=== PATIENT | female | born 1995 | race Caucasian/White ===

== ENCOUNTER 2017-02-03 17:16 | Emergency (ER) | payer OTHER ==
[2017-02-03 17:27] VITALS: BP 109/63; PULSE 88; TEMP 97.8; BMI 23.8
[2017-02-03] MEDS ORDERED: DEXAMETHASONE SOD PHOSPHATE 10 MG/1 ML VIAL ONE (18:30)
[2017-02-03] MEDS ORDERED: DEXAMETHASONE LIQUID 0.5 MG/5 ML 240 ML BULK BOTTLE PO ONE (18:48)
--- NOTE | 2017-02-03 18:57 | PDOC ---
History of Present Illness - General Chief Complaint: Sore Throat Stated Complaint: SORE THROAT Time Seen by Provider: 02/03/17 18:02 History Source: Patient Exam Limitations: No Limitations - History of Present Illness Initial Comments: 02/03/17 18:49 Patient is a 21-year-old female, presents with sore throat dysphasia since last p.m. Patient is an otherwise healthy, fully vaccinated, on no medication. Sister with similar symptoms. Patient reports having chills with no documented temperature, tactile only. Past Medical History: Denies. Allergies: No known allergies Medications: None Family History: Non-contributory Social History: Denies smoking, alcohol use, or IVDU Review of Systems GENERAL/CONSTITUTIONAL: No fever or chills. No weakness. No weight change. HEAD, EYES, EARS, NOSE AND THROAT: No change in vision. No ear pain or discharge. Sore throat and dysphagia CARDIOVASCULAR: No chest pain or shortness of breath. RESPIRATORY: No cough, wheezing, or hemoptysis. GASTROINTESTINAL: No nausea, vomiting, diarrhea or constipation. No rectal bleeding. GENITOURINARY: No dysuria, frequency, or change in urination. MUSCULOSKELETAL: No joint or muscle swelling or pain. No neck or back pain. SKIN AND BREASTS: No rash or easy bruising. NEUROLOGIC: No headache, vertigo, loss of consciousness, or loss of sensation. PSYCHIATRIC: No depression or anxiety. ENDOCRINE: No increased thirst. No abnormal weight change. HEMATOLOGIC/LYMPHATIC: No anemia, easy bleeding, or history of blood clots. ALLERGIC/IMMUNOLOGIC: No hives or skin allergy. No latex allergy. Physical Exam: GENERAL: The patient is awake, alert, and fully oriented, in no acute distress. EYES: Pupils equal, round and reactive to light, extraocular movements intact, sclera anicteric, conjunctiva clear. ENT: Ears normal, nares patent, oropharynx erythematous without exudates. Moist mucous membranes. No uvula deviation NECK: Normal range of motion, supple without lymphadenopathy, JVD, or masses. LUNGS: Breath sounds equal, clear to auscultation bilaterally. No wheezes, and no crackles. HEART: Regular rate and rhythm, normal S1 and S2 without murmur, rub or gallop. ABDOMEN: Soft, nontender, normoactive bowel sounds. No guarding, no rebound. No masses. No bruising or abrasions MUSCULOSKELETAL: Normal range of motion, no edema. No clubbing or cyanosis. No cords, erythema, or tenderness. No CVA Tenderness with fist palpation. SKIN: Warm, Dry, normal turgor, no rashes or lesions noted. Past History - Past Medical History Allergies/Adverse Reactions: Allergies Allergy/AdvReac Type Severity Reaction Status Date / Time No Known Allergies Allergy Verified 02/03/17 17:19 Home Medications: Ambulatory Orders Azithromycin [Zithromax 250mg Tablets -] 250 mg PO UTDICT #6 tab 02/03/17 Other medical history: h.pylori - Immunization History Immunization Up to Date: Yes - Psycho/Social/Smoking Cessation Hx Anxiety: No Suicidal Ideation: No Smoking Status: No Smoking History: Never smoked Have you smoked in the past 12 months: No Number of Cigarettes Smoked Daily: 0 Information on smoking cessation initiated: No Hx Alcohol Use: No Drug/Substance Use Hx: No Substance Use Type: None *Physical Exam - Vital Signs Last Vital Signs Temp Pulse Resp BP Pulse Ox 97.8 F 88 18 109/63 100 02/03/17 17:20 02/03/17 17:20 02/03/17 17:20 02/03/17 17:20 02/03/17 17:20 Medical Decision Making - Medical Decision Making 02/03/17 18:57 A/P: Patient with acute pharyngitis, sister with strep throat will treat with azithromycin. Patient with difficulty swallowing we'll give Decadron while in emergency department. I discussed the physical exam findings, ancillary test results and final diagnoses with the patient. I answered all of the patient's questions. The patient was satisfied with the care received and felt comfortable with the discharge plan and treatment plan. The patient will call to arrange follow-up and will return to the Emergency Department with any new, persistent or worsening symptoms. *DC/Admit/Observation/Transfer Diagnosis at time of Disposition: Pharyngitis Qualifiers: Pharyngitis/tonsillitis etiology: unspecified etiology Qualified Code(s): J02.9 - Acute pharyngitis, unspecified - Discharge Dispostion Disposition: HOME Condition at time of disposition: Good Admit: No - Prescriptions Prescriptions: Azithromycin [Zithromax 250mg Tablets -] 250 mg PO UTDICT #6 tab - Patient Instructions Printed Discharge Instructions: DI for Pharyngitis/Tonsillopharyngitis -- Adult Additional Instructions: 1. Increase fluid. 2. Pedialyte or Gatorade. 3. Please change toothbrush within 3 days of starting antibiotics. 4. Warm saltwater gargles. 5. Please follow up with PMD in 3 days if symptoms not resolving. 6. Please return to the ER unable to drink or eat, increased fever or other concerns
== END 2017-02-03 19:25 | disposition home or self-care (01) ==
LOC: JER 17:16 → JERFT 17:16
DX: J02.9 Acute pharyngitis, unspecified (principal)
CPT/HCPCS: 99281-25

== ENCOUNTER 2017-06-04 18:14 | Emergency (ER) | payer OTHER ==
[2017-06-04 18:17] VITALS: BP 114/60; PULSE 61; TEMP 98.3; BMI 21.9
--- NOTE | 2017-06-04 19:30 | PDOC ---
History of Present Illness - General Chief Complaint: Urinary Problem Stated Complaint: PAIN Time Seen by Provider: 06/04/17 19:03 History Source: Patient Exam Limitations: No Limitations - History of Present Illness Travel History: No Initial Comments: 06/04/17 19:29 This is a 21-year-old female without past medical history presents to the emergency department with burning on urination and at the completion of voiding. She states she has not been having any intercourse and has no vaginal discharge. She denies lower back pain and lower abdominal pain. She denies fevers, nausea, vomiting, abdominal pain, chest pain, shortness of breath, dizziness. Past History - Past Medical History Allergies/Adverse Reactions: Allergies Allergy/AdvReac Type Severity Reaction Status Date / Time No Known Allergies Allergy Verified 06/04/17 18:17 Home Medications: Ambulatory Orders Sulfamethoxazole/Trimethoprim [Bactrim Ds -] 1 tab PO BID #14 tablet 06/04/17 Other medical history: NONE - Immunization History Immunization Up to Date: Yes - Suicide/Smoking/Psychosocial Hx Smoking Status: No Smoking History: Never smoked Have you smoked in the past 12 months: No Number of Cigarettes Smoked Daily: 0 Hx Alcohol Use: No Drug/Substance Use Hx: No Substance Use Type: None Review of Systems - Review of Systems Able to Perform ROS?: Yes Is the patient limited Telugu proficient: No : Yes: See HPI All Other Systems: Reviewed and Negative *Physical Exam - Vital Signs Last Vital Signs Temp Pulse Resp BP Pulse Ox 98.3 F 61 20 114/60 110 H 06/04/17 18:14 06/04/17 18:14 06/04/17 18:14 06/04/17 18:14 06/04/17 18:14 - Physical Exam General Appearance: Yes: Appropriately Dressed. No: Apparent Distress HEENT: positive: EOMI, SYED, Normal ENT Inspection Neck: positive: Trachea midline, Supple Respiratory/Chest: positive: Lungs Clear, Normal Breath Sounds. negative: Respiratory Distress, Accessory Muscle Use Cardiovascular: positive: Regular Rhythm, Regular Rate, S1, S2. negative: Edema , Murmur Gastrointestinal/Abdominal: positive: Normal Bowel Sounds, Soft. negative: Tender Musculoskeletal: positive: Normal Inspection. negative: CVA Tenderness Extremity: positive: Normal Capillary Refill, Normal Inspection, Normal Range of Motion Integumentary: positive: Normal Color, Dry, Warm Neurologic: positive: records clerk II-XII NML intact, Fully Oriented, Alert, Normal Mood/ Affect, Normal Response, Motor Strength 5/5 Medical Decision Making - Medical Decision Making 06/04/17 19:28 A/P: This is a 21-year-old female without past medical history presents to the emergency department with burning on urination and at the completion of voiding. She states she has not been having any intercourse and has no vaginal discharge. She denies lower back pain and lower abdominal pain. She denies fevers, nausea, vomiting, abdominal pain, chest pain, shortness of breath, dizziness. Patient is alert and oriented 3 in no apparent distress. Respirations even and unlabored. Lungs sounds clear to auscultation bilaterally. Regular rate and rhythm. S1 and S2 present. No murmurs, rubs or gallop present. Abdomen soft nontender nondistended. Normal active bowel sounds. Moves all extremities 4 with strength 5 out of 5. No CVA tenderness elicited to light or deep palpation. Differential diagnosis include urinary tract infection, gonorrhea and Chlamydia infection. I will check a urine test and urinalysis and urine culture. Given patient's symptomatology I will empirically treat with antibiotics. 06/04/17 19:49 Urinalysis shows a large amount of RBCs and WBCs. This consistent with patient being on her period and not getting a clean catch sent. Given symptoms with ALLERGY I will treat patient with Bactrim DS 1 tab twice a day for the next 7 days. *DC/Admit/Observation/Transfer Diagnosis at time of Disposition: Urinary tract infection Qualifiers: Urinary tract infection type: site unspecified Hematuria presence: with hematuria Qualified Code(s): N39.0 - Urinary tract infection, site not specified ; N39.0 - Urinary tract infection, site not specified; R31.9 - Hematuria, unspecified; R31.9 - Hematuria, unspecified - Discharge Dispostion Disposition: HOME Condition at time of disposition: Stable Admit: No - Prescriptions Prescriptions: Sulfamethoxazole/Trimethoprim [Bactrim Ds -] 1 tab PO BID #14 tablet - Referrals Referrals: Saranya Vasquez MD [Primary Care Provider] - - Patient Instructions Printed Discharge Instructions: DI for Urinary Tract Infection (UTI) Additional Instructions: Drink plenty of fluids. Drink rearranges may help with urinary tract symptoms. Take Bactrim DS one tablet twice a day until all the medications are finished. Symptoms do not improve in the next 2-3 days see her primary doctor. Return to emergency department for fevers, worsening pain, pain in the lower back, nausea, vomiting or any other concerns. Thank you very much for choosing us to provide your emergent healthcare needs.
[2017-06-04 19:37] LABS: URINE APPEARANCE SLCLOUDY; URINE BILIRUBIN NEGATIVE (NEGATIVE); URINE BLOOD 3+ (NEGATIVE); URINE COLOR LTYELLOW; URINE GLUCOSE (UA) NEGATIVE (NEGATIVE); URINE KETONE NEGATIVE (NEGATIVE); URINE NITRITE NEGATIVE (NEGATIVE); URINE UROBILINOGEN NEGATIVE mg/dL (0.2-1.0)
[2017-06-04 19:40] LABS: URINE PROTEIN 1+ (NEGATIVE)
[2017-06-04 19:41] LABS: URINE MUCUS RARE; URINE RBC 525 /hpf (0-3); URINE WBC 242 /hpf (3-5)
[2017-06-04 22:48] LABS: URINE LEUK ESTERASE 1+ (NEGATIVE)
== END 2017-06-04 19:53 | disposition home or self-care (01) ==
LOC: JERFT 18:14
DX: N39.0 Urinary tract infection, site not specified (principal); R31.9 Hematuria, unspecified
CPT/HCPCS: 81003; 81015; 84703; 99281-25

== ENCOUNTER 2017-10-09 17:29 | Emergency (ER) | payer OTHER ==
[2017-10-09 17:34] VITALS: BP 123/71; PULSE 90; TEMP 98.1; BMI 21.9
--- NOTE | 2017-10-09 17:44 | PDOC ---
History of Present Illness - General Chief Complaint: Pain Stated Complaint: ABD PAIN Time Seen by Provider: 10/09/17 17:43 History Source: Patient Exam Limitations: No Limitations - History of Present Illness Initial Comments: 10/09/17 18:50 22F with pmh of H. Pylori ulcer presents to the ED for 9/10 bilateral lower quadrant abdominal pain that she has been having since she woke up yesterday morning. The pain feels pulsating and constant. Tried taking tylenol for it with minimal relief. Feels nauseous. Denies dysuria, hematuria, constipation, diarrhea or vomiting. Uses condoms consistently with boyfriend who is present in the room 10/09/17 18:51 10/09/17 19:01 Past History - Past Medical History Allergies/Adverse Reactions: Allergies Allergy/AdvReac Type Severity Reaction Status Date / Time No Known Allergies Allergy Verified 10/09/17 17:30 Home Medications: Ambulatory Orders Cephalexin [Keflex] 500 mg PO TID 10 Days #30 capsule 10/09/17 COPD: No - Immunization History Immunization Up to Date: Yes - Suicide/Smoking/Psychosocial Hx Smoking Status: No Smoking History: Never smoked Have you smoked in the past 12 months: No Number of Cigarettes Smoked Daily: 0 Information on smoking cessation initiated: No Hx Alcohol Use: No Drug/Substance Use Hx: No Substance Use Type: None Review of Systems - Review of Systems Able to Perform ROS?: Yes Is the patient limited [place] proficient: No Constitutional: No: Symptoms Reported HEENTM: No: Symptoms Reported Respiratory: No: Symptoms reported Cardiac (ROS): No: Symptoms Reported ABD/GI: Yes: See HPI : Yes: Pain. No: Burning, Dysuria, Discharge *Physical Exam - Vital Signs Last Vital Signs Temp Pulse Resp BP Pulse Ox 98.1 F 90 12 123/71 100 10/09/17 17:31 10/09/17 17:31 10/09/17 17:31 10/09/17 17:31 10/09/17 17:31 - Physical Exam General Appearance: Yes: Nourished, Appropriately Dressed, Moderate Distress HEENT: positive: EOMI, SYED, Normal ENT Inspection Respiratory/Chest: positive: Lungs Clear, Normal Breath Sounds. negative: Chest Tender, Respiratory Distress Cardiovascular: positive: Regular Rhythm, Regular Rate, S1, S2 Female Pelvic Exam: positive: normal external exam, cervical os closed, normal adnexa, normal size ovaries. negative: CMT, discharge, lesions Gastrointestinal/Abdominal: positive: Normal Bowel Sounds, Flat, Soft. negative : Tender Integumentary: positive: Normal Color, Dry, Warm Neurologic: positive: Fully Oriented, Alert, Normal Mood/Affect, Normal Response , Motor Strength 12/16 ED Treatment Course - LABORATORY CBC & Chemistry Diagram: 10/09/17 18:25 10/09/17 18:25 Medical Decision Making - Medical Decision Making 10/09/17 22:13 22F with lower abd pain. Negative Cy abd. Positive UA. No cervical motion tenderness. No PID. Pyelo vs cystitis. Keflex started and precribed. Follow up with nai 10/09/17 22:19 *DC/Admit/Observation/Transfer Diagnosis at time of Disposition: Cystitis - Discharge Dispostion Disposition: HOME Condition at time of disposition: Improved Admit: No - Prescriptions Prescriptions: Cephalexin [Keflex] 500 mg PO TID 10 Days #30 capsule - Referrals Referrals: Johnathan Ochoa MD [Staff Physician] - - Patient Instructions Printed Discharge Instructions: DI for Kidney Infection, DI for Hemorrhagic Cystitis Additional Instructions: Follow up with your OBGYN Dr. Ochoa within the next 2 days. Take your antibiotics 3 times a day for 10 days. Come back to the ER for any new, worsening or concerning symptom. - Post Discharge Activity
[2017-10-09] MEDS ORDERED: SODIUM CHLORIDE 1,000 ML IV STA (17:56)
[2017-10-09] MEDS ORDERED: ONDANSETRON 4 MG/2 ML VIAL IVPUSH ONE (17:57)
[2017-10-09] MEDS ORDERED: morphine CARPU-JECT 2 MG/1 ML DISP.SYRIN IVPUSH ONE (17:58)
[2017-10-09] MEDS ORDERED: MORPHINE SULFATE 10 MG/1 ML *VIAL ONE (18:32)
[2017-10-09] MEDS ORDERED: ONDANSETRON 4 MG/2 ML VIAL ONE (18:33)
[2017-10-09 18:36] LABS: BASO % 0.2 % (0-2.0); HEMATOCRIT 39.5 % (32.4-45.2); LYMPH % 13.2 % (8-40); MCH 28.8 pg (25.7-33.7); MCHC 32.9 g/dl (32.0-36.0); MEAN CELL VOLUME 87.5 fl (80-96); MEAN PLT VOLUME 10.7 fl (7.5-11.1); MONO % 6.5 % (3.8-10.2); NEUT % 79.1 % (42.8-82.8); PLATELET COUNT 164 K/MM3 (134-434); RBC 4.51 M/mm3 (3.60-5.2); RDW 14.5 % (11.6-15.6); WHITE BLOOD COUNT 14.3 K/mm3 (4.0-10.0)
[2017-10-09 18:44] LABS: HCG,QUALITATIVE URINE NEGATIVE
[2017-10-09 19:05] LABS: ANION GAP 8 (8-16); BILIRUBIN,TOTAL 0.4 mg/dL (0.2-1.0); BLOOD UREA NITROGEN 14 mg/dL (7-18); CALCIUM 8.3 mg/dL (8.5-10.1); CHLORIDE 105 mmol/L (98-107); CO2 27 mmol/L (21-32); CREATININE 0.7 mg/dL (0.55-1.02); GLUCOSE,RANDOM 86 mg/dL (74-106); POTASSIUM 3.6 mmol/L (3.5-5.1); SGOT/AST 14 U/L (15-37); SGPT/ALT 19 U/L (12-78); SODIUM 140 mmol/L (136-145); TOT PROT 7.1 g/dl (6.4-8.2)
[2017-10-09 19:06] LABS: ALK PHOS 66 U/L (45-117)
--- NOTE | 2017-10-09 20:12 | PDOC ---
Attending Attestation - Resident Resident Name: Jose Javier - ED Attending Attestation I have performed the following: I have examined & evaluated the patient, The case was reviewed & discussed with the resident, I agree w/resident's findings & plan, Exceptions are as noted - HPI HPI: 10/09/17 20:12 22-year-old female presents with lower abdominal pain 1 day. - Physicial Exam PE: 10/09/17 20:12 Well-developed 22-year-old female in no acute distress. Head normocephalic/atraumatic. Neck no bruits, nodes, JVD, supple Lungs clear to auscultation bilaterally CVS regular rate and rhythm S1, S2 no gallops no rubs. Abdomen lower quadrant tenderness to deep palpation, no rebound, no epigastric tenderness. Extremities no erythema, no clubbing, no edema. Neuro alert and oriented 3. No gross focal neural deficits. Skin warm and dry. Psych appropriate - Medical Decision Making 10/09/17 20:23 preg,cbc,comp,imaging 10/09/17 22:29 ct scan abd pel is negative for acute abdominal or pelvic pathology imp mild uti, will start w antibiotics
[2017-10-09 21:24] LABS: URINE APPEARANCE CLOUDY; URINE BILIRUBIN NEGATIVE (NEGATIVE); URINE BLOOD 3+ (NEGATIVE); URINE COLOR YELLOW; URINE GLUCOSE (UA) NEGATIVE (NEGATIVE); URINE KETONE NEGATIVE (NEGATIVE); URINE NITRITE NEGATIVE (NEGATIVE); URINE UROBILINOGEN NEGATIVE mg/dL (0.2-1.0)
[2017-10-09 21:27] LABS: URINE LEUK ESTERASE 2+ (NEGATIVE); URINE PROTEIN 2+ (NEGATIVE)
[2017-10-09 21:28] LABS: EPI CELLS RARE /HPF (FEW); URINE BACTERIA RARE /hpf (NONE SEEN); URINE MUCUS RARE
[2017-10-09] MEDS ORDERED: CEPHALEXIN MONOHYDRATE 500 MG CAPSULE (UD) PO ONE (22:10)
[2017-10-09] MEDS ORDERED: CEPHALEXIN MONOHYDRATE 250 MG CAPSULE (FP) ONE (22:25)
== END 2017-10-09 22:29 | disposition home or self-care (01) ==
LOC: JER 17:29
PROC: 3E033NZ Introduction of Analgesics, Hypnotics, Sedatives into Peripheral Vein, Percutaneous Approach (ICD-10-PCS; principal; 2017-10-09)
PROC: 3E0333Z Introduction of Anti-inflammatory into Peripheral Vein, Percutaneous Approach (ICD-10-PCS; 2017-10-09)
DX: N30.00 Acute cystitis without hematuria (principal)
CPT/HCPCS: 36415; 74177-TC; 80053; 81003; 81015; 84703; 85025; 87086; 87186; 96374; 96375; 99282-25

== ENCOUNTER 2018-07-08 22:09 | Emergency (ER) | payer OTHER ==
[2018-07-08 22:26] VITALS: TEMP 98.9
--- NOTE | 2018-07-08 22:33 | PDOC ---
History of Present Illness - General Chief Complaint: Pain Stated Complaint: ABDOMINAL PAIN History Source: Patient Exam Limitations: No Limitations - History of Present Illness Travel History: No Initial Comments: 07/08/18 23:14 Best Contact: PCP: Dr. Patsy Vasquez Pmhx: Denies Pshx: 2014: right knee arthroscopy Allergies: NKDA FH:0 Social Hx: Cigarettes/ 0 Alcohol/ 0 Drugs/0 LMP: 06/23/2018 22-year-old female presents to the emergency department complaining of left lower quadrant and periumbilical abdominal discomfort 3 days with nausea and vomiting this evening/nonbilious, nonbloody. Pain is described as 6/10 dull nonradiating intermittent discomfort. There are no exacerbating or alleviating factors. Patient attributed the pain to over eating 4 days ago from a Thanksgiving dinner. Patient attempted to burp numerous times to feel better but was unable to make herself burp. Patient denies fever, chills, headache, dizziness, lightheadedness, neck pain/stiffness, back pains, chest pain, shortness of breath, flank pains, urinary symptoms: Frequency/urgency/hesitancy , burning upon urination or hematuria. Patient denies history of similar symptoms. Past History - Past Medical History Allergies/Adverse Reactions: Allergies Allergy/AdvReac Type Severity Reaction Status Date / Time No Known Allergies Allergy Verified 07/08/18 22:25 Home Medications: Ambulatory Orders Cephalexin [Keflex] 500 mg PO TID 10 Days #30 capsule 10/09/17 COPD: No - Immunization History Immunization Up to Date: Yes - Suicide/Smoking/Psychosocial Hx Smoking Status: No Smoking History: Never smoked Have you smoked in the past 12 months: No Number of Cigarettes Smoked Daily: 0 Hx Alcohol Use: No Drug/Substance Use Hx: No Substance Use Type: None Review of Systems - Review of Systems Able to Perform ROS?: Yes Comments:: 07/08/18 23:11 CONSTITUTIONAL: Absent: fever, chills, diaphoresis, generalized weakness, malaise, loss of appetite HEENT: Absent: rhinorrhea, nasal congestion, throat pain, throat swelling, difficulty swallowing, mouth swelling, ear pain, eye pain, visual Changes CARDIOVASCULAR: Absent: chest pain, loss of consciousness, palpitations, irregular heart rate, peripheral edema RESPIRATORY: Absent: cough, shortness of breath, dyspnea with exertion, orthopnea, wheezing, stridor, hemoptysis GASTROINTESTINAL: +LLQ and juan umbilical pain Absent: abdominal distension, nausea, vomiting, diarrhea, constipation, melena, hematochezia GENITOURINARY: Absent: dysuria, frequency, urgency, hesitancy, hematuria, flank pain, genital pain MUSCULOSKELETAL: Absent: myalgia, arthralgia, joint swelling SKIN: Absent: rash, itching, pallor HEMATOLOGIC/IMMUNOLOGIC: Absent: easy bleeding, easy bruising, lymphadenopathy, frequent infections ENDOCRINE: Absent: unexplained weight gain, unexplained weight loss, heat intolerance, cold intolerance Is the patient limited Swedish proficient: No *Physical Exam - Vital Signs Last Vital Signs Temp Pulse Resp BP Pulse Ox 98.9 F 66 18 114/68 100 07/08/18 22:25 07/08/18 22:25 07/08/18 22:25 07/08/18 22:25 07/08/18 22:25 - Physical Exam Comments: 07/08/18 23:12 GENERAL: Well developed, well nourished. Awake and alert. No acute distress. HEENT: Normocephalic, atraumatic. PERRLA, EOMI. No conjunctival pallor. Sclera are non- icteric. Moist mucous membranes. Oropharynx is clear. NECK: Supple. Full ROM. No JVD. Carotid pulses 2+ and symmetric, without bruits. No thyromegaly. No lymphadenopathy. CARDIOVASCULAR: Regular rate and rhythm. No murmurs, rubs, or gallops. Distal pulses are 2+ and symmetric. PULMONARY: No evidence of respiratory distress. Lungs clear to auscultation bilaterally. No wheezing, rales or rhonchi. ABDOMINAL: +LLQ and periumbilical pain Soft. Non-distended. No rebound or guarding. No organomegaly. Normoactive bowel sounds. MUSCULOSKELETAL Normal range of motion at all joints. No bony deformities or tenderness. No CVA tenderness. EXTREMITIES: No cyanosis. No clubbing. No edema. No calf tenderness. SKIN: Warm and dry. Normal capillary refill. No rashes. No jaundice. ED Treatment Course - LABORATORY CBC & Chemistry Diagram: 07/08/18 23:05 07/08/18 23:05 - RADIOLOGY Radiograph Interpretation: 07/09/18 02:47 Ultrasound transvaginal: Normal uterus. Normal homogeneous endometrial complex measuring 1.2 cm. Normal follicular right ovary with possible arteriovenous Doppler blood flow. There is a complex left ovarian cyst measuring approximately 1.2 cm. The remainder of the left ovary is normal with positive arteriovenous Doppler blood flow. There is also some fluid in the pelvic cul-de-sac. Possible ruptured cyst. CAT scan abdomen/pelvis with IV contrast: There is a 2 cm left adnexal cyst or possibly 2 adjacent left adnexal cyst. There is fluid in the left adnexal and in the cul-de-sac. Possible rupturing cyst. Ultrasound should be helpful. No bowel structure or inflammation. Negative for diverticulitis or colitis. Normal appendix. Normal kidneys urinary tract urinary bladder. Heterogeneous appearing liver. Nonspecific. Normal spleen. *DC/Admit/Observation/Transfer Diagnosis at time of Disposition: Ovarian cyst Qualifiers: Laterality: left Qualified Code(s): N83.202 - Unspecified ovarian cyst, left side - Discharge Dispostion Disposition: HOME Condition at time of disposition: Stable Decision to Admit order: No - Referrals Referrals: Saranya Vasquez MD [Primary Care Provider] - - Patient Instructions Printed Discharge Instructions: DI for Ovarian Cyst Additional Instructions: Increase fluids Tylneol or Motrin as needed for pain Be sure to follow-up with your benzene worker this week Return back to the ER for any concerns, severe/persistent or worsening symptoms These are your preliminary reading from the ultrasound and CAT scan of your abdomen/pelvis Ultrasound transvaginal: Normal uterus. Normal homogeneous endometrial complex measuring 1.2 cm. Normal follicular right ovary with possible arteriovenous Doppler blood flow. There is a complex left ovarian cyst measuring approximately 1.2 cm. The remainder of the left ovary is normal with positive arteriovenous Doppler blood flow. There is also some fluid in the pelvic cul-de-sac. Possible ruptured cyst. CAT scan abdomen/pelvis with IV contrast: There is a 2 cm left adnexal cyst or possibly 2 adjacent left adnexal cyst. There is fluid in the left adnexal and in the cul-de-sac. Possible rupturing cyst. Ultrasound should be helpful. No bowel structure or inflammation. Negative for diverticulitis or colitis. Normal appendix. Normal kidneys urinary tract urinary bladder. Heterogeneous appearing liver. Nonspecific. Normal spleen. - Post Discharge Activity
[2018-07-08 23:14] LABS: BASO % 0.5 % (0-2.0); EOS % 2.9 % (0-4.5); HEMATOCRIT 37.1 % (32.4-45.2); HEMOGLOBIN 12.9 GM/dL (10.7-15.3); LYMPH % 37.6 % (8-40); MCHC 34.7 g/dl (32.0-36.0); MEAN CELL VOLUME 86.6 fl (80-96); MONO % 10.2 % (3.8-10.2); NEUT % 48.8 % (42.8-82.8); PLATELET COUNT 173 K/MM3 (134-434); RBC 4.29 M/mm3 (3.60-5.2); RDW 13.6 % (11.6-15.6); WHITE BLOOD COUNT 8.1 K/mm3 (4.0-10.0)
[2018-07-08 23:36] LABS: ALBUMIN 3.7 g/dl (3.4-5.0); ALK PHOS 69 U/L (45-117); ANION GAP 6 MMOL/L (8-16); BILIRUBIN,TOTAL 0.1 mg/dL (0.2-1); BLOOD UREA NITROGEN 15 mg/dL (7-18); CALCIUM 8.5 mg/dL (8.5-10.1); CHLORIDE 104 mmol/L (98-107); CO2 28 mmol/L (21-32); CREATININE 0.8 mg/dL (0.55-1.3); GLUCOSE,RANDOM 71 mg/dL (74-106); LIPASE 150 U/L (73-393); POTASSIUM 3.5 mmol/L (3.5-5.1); SGOT/AST 18 U/L (15-37); SGPT/ALT 21 U/L (13-61); SODIUM 138 mmol/L (136-145)
[2018-07-08 23:42] LABS: URINE APPEARANCE SLCLOUDY; URINE BILIRUBIN NEGATIVE (<2.0 mg/dL); URINE COLOR LTYELLOW; URINE GLUCOSE (UA) NEGATIVE (NEGATIVE); URINE KETONE NEGATIVE (NEGATIVE); URINE LEUK ESTERASE NEGATIVE (NEGATIVE); URINE NITRITE NEGATIVE (NEGATIVE); URINE PROTEIN NEGATIVE (NEGATIVE); URINE UROBILINOGEN NEGATIVE mg/dL (0.2-1.0)
[2018-07-08 23:46] LABS: HCG,QUALITATIVE URINE Negative
[2018-07-09] MEDS ORDERED: ACETAMINOPHEN 325 MG TABLET (FP) ONE (00:51)
[2018-07-09] MEDS: ACETAMINOPHEN 500 MG TABLET (FP) PO ONE ×2 (00:55→03:40)
[2018-07-09] MEDS ORDERED: ACETAMINOPHEN 325 MG TABLET (FP) PO ONE (03:39)
[2018-07-09 03:46] VITALS: BP 111/57; PULSE 69
== END 2018-07-09 02:55 | disposition home or self-care (01) ==
LOC: JER 22:09
DX: N83.202 Unspecified ovarian cyst, left side (principal)
CPT/HCPCS: 36415; 74177-TC; 76830-TC; 80053; 81003; 83690; 84703; 85025; 99283-25

== ENCOUNTER 2019-06-28 17:32 | Emergency (ER) | payer OTHER ==
[2019-06-28 17:45] VITALS: BP 110/65; PULSE 81; TEMP 98.2; BMI 23.2
--- NOTE | 2019-06-28 17:45 | PDOC ---
Rapid Medical Evaluation Chief Complaint: Urinary Problem Time Seen by Provider: 06/28/19 17:41 Medical Evaluation: Allergies Allergy/AdvReac Type Severity Reaction Status Date / Time No Known Allergies Allergy Verified 07/08/18 22:25 06/28/19 17:42 23 year old female with dysuria since monday some suprapubic pain. patient reports that she has been taking AZO with no relief. Pe; patient alert ox3. a: dysuria r/o UTI P: ua urine culture urine Discharge Disposition - Diagnosis Dysuria - Referrals - Patient Instructions - Post Discharge Activity
[2019-06-28 19:44] LABS: EPI CELLS 4.7 /HPF (0-5/HPF); HYALINE CASTS 9 /lpf (0-8); URINE APPEARANCE CLEAR; URINE BACTERIA 8.1 /hpf (NEGATIVE); URINE BILIRUBIN NEGATIVE (NEGATIVE); URINE COLOR YELLOW; URINE GLUCOSE (UA) NEGATIVE (NEGATIVE); URINE KETONE NEGATIVE (NEGATIVE); URINE LEUK ESTERASE 1+ (NEGATIVE); URINE NITRITE NEGATIVE (NEGATIVE); URINE PROTEIN NEGATIVE (NEGATIVE); URINE RBC 2 /hpf (0-4); URINE UROBILINOGEN 0.2 mg/dL (0.2-1.0); URINE WBC 17 /hpf (0-5)
--- NOTE | 2019-06-28 19:53 | PDOC ---
History of Present Illness - General Chief Complaint: Urinary Problem Stated Complaint: URINE PROBLEMS Time Seen by Provider: 06/28/19 17:41 History Source: Patient Exam Limitations: No Limitations Past History - Travel Traveled outside of the country in the last 30 days: No Close contact w/someone who was outside of country & ill: No - Past Medical History Allergies/Adverse Reactions: Allergies Allergy/AdvReac Type Severity Reaction Status Date / Time No Known Allergies Allergy Verified 06/28/19 17:42 Home Medications: Ambulatory Orders Cephalexin Monohydrate [Keflex -] 500 mg PO BID #14 capsule 06/28/19 COPD: No - Reproductive History Therapeutic (s) & number: No - Immunization History Immunization Up to Date: Yes - Psycho Social/Smoking Cessation Hx Smoking Status: No Smoking History: Never smoked Have you smoked in the past 12 months: No Number of Cigarettes Smoked Daily: 0 Information on smoking cessation initiated: No Hx Alcohol Use: No Drug/Substance Use Hx: No Substance Use Type: None Review of Systems - Review of Systems Able to Perform ROS?: Yes Comments:: 06/28/19 19:45 CONSTITUTIONAL: Absent: fever, chills, diaphoresis, generalized weakness, malaise, loss of appetite HEENT: Absent: rhinorrhea, nasal congestion, throat pain, throat swelling, difficulty swallowing, mouth swelling, ear pain, eye pain, visual Changes CARDIOVASCULAR: Absent: chest pain, loss of consciousness, palpitations, irregular heart rate, peripheral edema RESPIRATORY: Absent: cough, shortness of breath, dyspnea with exertion, orthopnea, wheezing, stridor, hemoptysis GASTROINTESTINAL: Absent: abdominal pain, abdominal distension, nausea, vomiting, diarrhea, constipation, melena, hematochezia GENITOURINARY: Present: dysuria Absent: frequency, urgency, hesitancy, hematuria, flank pain, genital pain MUSCULOSKELETAL: Absent: myalgia, arthralgia, joint swelling SKIN: Absent: rash, itching, pallor HEMATOLOGIC/IMMUNOLOGIC: Absent: easy bleeding, easy bruising, lymphadenopathy, frequent infections ENDOCRINE: Absent: unexplained weight gain, unexplained weight loss, heat intolerance, cold intolerance NEUROLOGIC: Absent: headache, focal weakness or paresthesias, dizziness, unsteady gait, seizure, mental status changes, bladder or bowel incontinence PSYCHIATRIC: Absent: anxiety, depression, suicidal or homicidal ideation, hallucinations. Is the patient limited [place]ian proficient: No *Physical Exam - Vital Signs Last Vital Signs Temp Pulse Resp BP Pulse Ox 98.2 F 81 16 110/65 100 06/28/19 17:42 06/28/19 17:42 06/28/19 17:42 06/28/19 17:42 06/28/19 17:42 - Physical Exam Comments: 06/28/19 19:53 GENERAL: Well developed, well nourished. Awake and alert. No acute distress. HEENT: Normocephalic, atraumatic. PERRLA, EOMI. No conjunctival pallor. Sclera are non- icteric. Moist mucous membranes. Oropharynx is clear. NECK: Supple. Full ROM. ABDOMINAL: Soft. Non-tender. Non-distended. No rebound or guarding. No organomegaly. Normoactive bowel sounds. SKIN: Warm and dry. Normal capillary refill. No rashes. No jaundice. NEUROLOGICAL: Alert, awake, appropriate. Cranial nerves 2-12 intact. No deficits to light touch and temperature in face, upper extremities and lower extremities. No motor deficits in the in face, upper extremities and lower extremities. Normoreflexic in the upper and lower extremities. Normal speech. Toes are down- going bilaterally. Gait is normal without ataxia. PSYCHIATRIC: Cooperative. Good eye contact. Appropriate mood and affect. ED Treatment Course - ADDITIONAL ORDERS Additional order review: Laboratory Results 06/28/19 17:55 Urine Color Yellow Urine Appearance Clear Urine pH 5.0 Ur Specific [place] 1.025 Urine Protein Negative Urine Glucose (UA) Negative Urine Ketones Negative Urine Blood Negative Urine Nitrite Negative Urine Bilirubin Negative Urine Urobilinogen 0.2 Ur Leukocyte Esterase 1+ H Urine WBC (Auto) 17 Urine RBC (Auto) 2 Urine Casts (Auto) 9 U Epithel Cells (Auto) 4.7 Urine Bacteria (Auto) 8.1 Medical Decision Making - Medical Decision Making 06/28/19 20:11 The patient is a 23-year-old female with no past medical history who presents the ER with 3 days of dysuria. She states she is taken AZO at home with little relief of her symptoms. She states that it dowling about the beginning and end of urination. She has not taken any medication for pain. Denies fevers, chills , back pain, nausea, vomiting. Her last menstrual cycle was 1 month ago. A/P: UTI On exam abdomen is soft, nontender with no rebound guarding or tenderness. No CVA tenderness UA is weakly positive with 1+ leukocytes; however since patient is symptomatic we will treat with Keflex at this time Urine negative Discharge home with PCP follow-up I discussed the physical exam findings, ancillary test results and final diagnoses with the patient. I answered all of the patient's questions. The patient was satisfied with the care received and felt comfortable with the discharge plan and treatment plan. The Patient agrees to follow up with the primary care physician/specialist within 24-72 hours. Return precautions were given. Discharge - Discharge Information Problems reviewed: Yes Clinical Impression/Diagnosis: UTI (urinary tract infection) Qualifiers: Urinary tract infection type: acute cystitis Hematuria presence: without hematuria Qualified Code(s): N30.00 - Acute cystitis without hematuria Condition: Stable Disposition: HOME - Admission No - Additional Discharge Information Prescriptions: Cephalexin Monohydrate [Keflex -] 500 mg PO BID #14 capsule - Follow up/Referral Referrals: Saranya Vasquez MD [Primary Care Provider] - - Patient Discharge Instructions Patient Printed Discharge Instructions: DI for Urinary Tract Infection (UTI) Additional Instructions: You have a urinary tract infection. This caused by bacteria. Please drink plenty of fluids. Take your antibiotics as prescribed. Finish the entire dose even if you feel better. You may take Tylenol or Motrin as needed for pain Please follow up with your primary care doctor this week. Return to the emergency department if you have fevers, chills, nausea, vomiting , back pain, or have any changes in your symptoms. - Post Discharge Activity
== END 2019-06-28 20:10 | disposition home or self-care (01) ==
LOC: JERFT 17:32
DX: N30.00 Acute cystitis without hematuria (principal)
CPT/HCPCS: 81003; 84703; 87086; 99281-25

== ENCOUNTER 2021-02-16 13:23 | Emergency (ER) | payer OTHER ==
[2021-02-16 13:26] VITALS: BP 103/66; PULSE 78; TEMP 98; BMI 23.8
[2021-02-16] MEDS ORDERED: SODIUM CHLORIDE 0.9% 500 ML INFUS.BAG IV ONE (14:13)
[2021-02-16] MEDS ORDERED: ONDANSETRON 4 MG/2 ML VIAL IVPUSH ONE (14:13)
[2021-02-16] MEDS ORDERED: MAG HYDROX/AL HYDROX/SIMETH 30 ML UNIT-DOSE CUP PO ONE (14:13)
[2021-02-16] MEDS ORDERED: PANTOPRAZOLE SODIUM 40 MG VIAL IVPUSH ONE (14:14)
[2021-02-16] MEDS ORDERED: MAG HYDROX/AL HYDROX/SIMETH 30 ML UNIT-DOSE CUP ONE (14:31)
[2021-02-16] MEDS ORDERED: ONDANSETRON 4 MG/2 ML VIAL ONE (14:31)
[2021-02-16] MEDS ORDERED: PANTOPRAZOLE SODIUM 40 MG VIAL ONE (14:32)
[2021-02-16 15:16] LABS: BASO % 0.3 % (0-2.0); EOS % 1.6 % (0-4.5); HEMATOCRIT 40.8 % (32.4-45.2); HEMOGLOBIN 13.5 GM/dL (10.7-15.3); LYMPH % 20.3 % (8-40); MCHC 33.1 g/dl (32.0-36.0); MEAN CELL VOLUME 87.7 fl (80-96); MEAN PLT VOLUME 10.6 fl (7.5-11.1); MONO % 7.4 % (3.8-10.2); NEUT % 70.4 % (42.8-82.8); PLATELET COUNT 173 10^3/uL (134-434); RBC 4.65 M/mm3 (3.60-5.2); RDW 14.5 % (11.6-15.6); WHITE BLOOD COUNT 10.4 K/mm3 (4.0-10.0)
[2021-02-16 15:20] LABS: EPI CELLS 17 /uL (0-25.1); HYALINE CASTS 1 /uL (0-3.1); URINE APPEARANCE CLEAR; URINE BACTERIA 896 /uL (0-1359); URINE BILIRUBIN NEGATIVE (NEGATIVE); URINE COLOR YELLOW; URINE GLUCOSE (UA) NEGATIVE (NEGATIVE); URINE KETONE 1+ (NEGATIVE); URINE LEUK ESTERASE TRACE (NEGATIVE); URINE NITRITE NEGATIVE (NEGATIVE); URINE PROTEIN NEGATIVE (NEGATIVE); URINE RBC 13 /uL (0-23.9); URINE WBC 14 /uL (0-25.8)
[2021-02-16 15:44] LABS: CALCIUM 8.5 mg/dL (8.5-10.1)
[2021-02-16 15:45] LABS: ALBUMIN 3.9 g/dl (3.4-5.0)
[2021-02-16 15:48] LABS: CREATININE 0.6 mg/dL (0.55-1.3)
[2021-02-16 15:49] LABS: BILIRUBIN,TOTAL 0.6 mg/dL (0.2-1); TOT PROT 7.4 g/dl (6.4-8.2)
== END 2021-02-16 16:20 | disposition home or self-care (01) ==
LOC: JER 13:23
PROC: 3E033GC Introduction of Other Therapeutic Substance into Peripheral Vein, Percutaneous Approach (ICD-10-PCS; principal; 2021-02-16)
DX: R11.2 Nausea with vomiting, unspecified (principal)
CPT/HCPCS: 36415; 80053; 81003; 83690; 85025; 99284-25

== ENCOUNTER 2022-03-22 05:39 | Emergency (ER) | payer OTHER ==
[2022-03-22 06:04] VITALS: BP 110/75; PULSE 92; RESP 18; TEMP 98.5; BMI 23.8
[2022-03-22] MEDS ORDERED: IBUPROFEN 600 MG TABLET (FP) PO ONE ×2 (06:39→07:15)
[2022-03-22 06:46] LABS: THROAT:GRP A STREP NOT DETECTED (NOTDETECTED)
[2022-03-22 07:09] LABS: SARS COV-2 MOLECULAR IN-HOUSE NEGATIVE (NEGATIVE)
[2022-03-22] MEDS ORDERED: ONDANSETRON 4 MG TABLET PO ONE (09:18)
== END 2022-03-22 09:29 | disposition home or self-care (01) ==
LOC: JER 05:39
DX: R07.0 Pain in throat (principal)
CPT/HCPCS: 87070; 87651; 87804; 99283-25; C9803-CS; U0003; U0005

== ENCOUNTER 2022-04-07 21:15 | Emergency (ER) | payer OTHER ==
[2022-04-07 21:32] VITALS: BP 99/64; PULSE 88; RESP 20; TEMP 98.1; BMI 24.7
[2022-04-07] MEDS ORDERED: SODIUM CHLORIDE 0.9% 500 ML INFUS.BAG IV ONE (23:38)
[2022-04-07] MEDS ORDERED: ACETAMINOPHEN 1000 MG/100 ML BAG IVPB ONE (23:38)
[2022-04-07] MEDS ORDERED: ACETAMINOPHEN INJECTION 100 ML IVPB ONE (23:48)
[2022-04-08 00:26] LABS: BASO % 0.2 % (0-2.0); EOS % 0.6 % (0-4.5); HEMATOCRIT 38.6 % (32.4-45.2); MCH 29.1 pg (25.7-33.7); MCHC 33.6 g/dl (32.0-36.0); MEAN CELL VOLUME 86.5 fl (80-96); MEAN PLT VOLUME 10.3 fl (7.5-11.1); MONO % 11.1 % (3.8-10.2); NEUT % 71.1 % (42.8-82.8); PLATELET COUNT 160 10^3/uL (134-434); RBC 4.46 M/mm3 (3.60-5.2); RDW 14.1 % (11.6-15.6); WHITE BLOOD COUNT 6.2 K/mm3 (4.0-10.0)
[2022-04-08 00:30] LABS: ALBUMIN 3.4 g/dl (3.4-5.0); BLOOD UREA NITROGEN 12.4 mg/dL (7-18); CALCIUM 7.9 mg/dL (8.5-10.1)
[2022-04-08 00:33] LABS: CREATININE 0.7 mg/dL (0.55-1.3)
[2022-04-08 00:35] LABS: BILIRUBIN,TOTAL 0.5 mg/dL (0.2-1); TOT PROT 6.7 g/dl (6.4-8.2)
[2022-04-08 01:01] LABS: EPI CELLS >36 /uL (0-25.1); HYALINE CASTS 2 /uL (0-3.1); PH,URINE 5.5 (5.0-8.0); URINE APPEARANCE CLEAR; URINE BACTERIA 1048 /uL (0-1359); URINE BILIRUBIN NEGATIVE (NEGATIVE); URINE COLOR DK YELLOW; URINE GLUCOSE (UA) NEGATIVE (NEGATIVE); URINE KETONE TRACE (NEGATIVE); URINE LEUK ESTERASE TRACE (NEGATIVE); URINE NITRITE NEGATIVE (NEGATIVE); URINE PROTEIN TRACE (NEGATIVE); URINE WBC 38 /uL (0-25.8)
[2022-04-08 01:03] LABS: HCG,QUALITATIVE URINE Negative
[2022-04-08 07:29] LABS: URINE RBC 131.7 /uL (0-23.9)
== END 2022-04-08 02:36 | disposition home or self-care (01) ==
LOC: JER 21:15
PROC: 3E0333Z Introduction of Anti-inflammatory into Peripheral Vein, Percutaneous Approach (ICD-10-PCS; principal; 2022-04-07)
DX: R19.7 Diarrhea, unspecified (principal); R11.2 Nausea with vomiting, unspecified; R10.9 Unspecified abdominal pain
CPT/HCPCS: 0241U-QW; 36415; 80053; 81003; 84703; 85025; 87086; 87186; 99284-25